=== PATIENT | male | born 1955 | race Two or more races ===

== ENCOUNTER 2019-06-14 14:15 | Inpatient (IN) | payer SELFPAY ==
[2019-06-14] VITALS (9 sets, daily range): BP systolic 145–174; BP diastolic 83–120; PULSE 64–99; RESP 14–18; TEMP 36.6–36.9; O2SAT 94–97; BMI 38.9; BMI 38.2; BMI 38.3
--- NOTE | 2019-06-14 14:20 | ED.RN ---
NO OLD EKG
--- NOTE | 2019-06-14 14:35 | EKG12_ITS ---
Test Reason : DYSRHYTHMIA Blood Pressure : / mmHG Vent. Rate : 094 BPM Atrial Rate : 100 BPM P-R Int : 000 ms QRS Dur : 088 ms QT Int : 358 ms P-R-T Axes : 000 -26 010 degrees QTc Int : 447 ms Atrial fibrillation Otherwise normal ECG Confirmed by SHEILA HAJI, REBECA ([id number]), index editor LIZ RAMOS ([id number]) on 06/17/2019 1:21:25 PM Referred By: Mana Nickerson Confirmed By:REBECA SOSA MD
[2019-06-14 14:44] LABS: Absolute Neutrophil Count 3.6 X10^3/uL (2.0-7.7); Basophil# 0.02 X10^3/uL; Basophil% 0.4 % (0-1); Eosinophil# 0.03 X10^3/uL; Eosinophils% 0.6 % (0-5); Hematocrit 43.7 % (40-54); Hemoglobin 15.4 g/dL (13.0-16.5); Lymphocyte % 24.5 % (19-41); Mean Corp Hgb Conc 35.2 g/dL (32-36); Mean Corpuscular Hgb 32.8 pg (27.0-32.0); Mean Platelet Vol. 10.3 fl (6.2-12.0); Monocyte# 0.33 X10^3/uL; Monocyte% 6.2 % (0-10); NRBC Flagged by Analyzer 0 % (0-5); Neutrophil # 3.61 X10^3/uL (2.7-7.7); Neutrophil % 67.9 % (47-70); Platelet Count 229 K/mm3 (150-450); RBC Distribution Width SD 41.1 fl (35.1-43.9); White Blood Count 5.3 K/mm3 (4.4-11.0)
--- NOTE | 2019-06-14 14:44 | RAD_ITS ---
STUDY: X-RAY CHEST REASON FOR EXAM: Male, 63 years old. Chest pain TECHNIQUE: AP COMPARISON: None. FINDINGS: EKG leads project over the chest. The lungs are clear and expanded. There is no demonstrated pleural abnormality. Normal size heart. Normal mediastinum and daiana. Normal visualized pulmonary arteries. Normal visualized aortic arch and descending thoracic aorta. Normal visualized thoracic spine. Normal visualized ribs, clavicles, and shoulders. There is no demonstrated abnormality of the visualized soft tissue structures of the upper abdomen. RAD/Chest 1 View (Portable) IMPRESSION: Nonacute portable x-ray examination of the chest. Electronically Signed: Alphonse De Anda MD ([place]) at 14:52 EDT , Service support ,
[2019-06-14 15:04] LABS: Anion Gap 9 (5-15); BUN 14 mg/dL (7-18); BUN/Creat Ratio 11.9 RATIO (10-20); Chloride 107 mmol/L (98-107); Creatinine, Serum 1.18 mg/dL (0.70-1.30); EST Glomerular Filtration Rate 66 mL/min (>60); Est Glom Filt Rate - Afr Amer 80 mL/min (>60); Estimated Creatinine Clearance 66.16 ml/min; Glucose 104 mg/dL (74-106); Potassium 3.9 mmol/L (3.5-5.1); Sodium Level 139 mmol/L (136-145); Thyroid Stim Hormone (TSH) 2.16 uIU/mL (0.358-3.74)
[2019-06-14] MEDS: dilTIAZem 25 MG/5 ML Vial 20 MG IV BOLUS (15:12)
[2019-06-14] MEDS: 0.9% Normal Saline 1,000 ML 1000 ML IV (15:12)
[2019-06-14] MEDS: Aspirin 81 MG TAB.CHEW 324 MG PO (15:13)
--- NOTE | 2019-06-14 16:27 | ED.VISSUMM ---
- ER Visit Summary Date of Service: 06/14/19 Chief Complaint: Shortness of breath History of Present Illness: The patient is a [address] Antonio Reyes. He reports that approximate 1030 this morning he was working in the barn and became very short of breath and nauseated. States he is very lightheaded. He did not pass out. He denies any chest pain. Patient reports he has a history of paroxysmal atrial fibrillation. He is on aspirin only for this. He does report he has had increased dyspnea on exertion for several months. He does not sense any palpitations at this time. Physical Examination: Vitals: Stable. Afebrile. General: Well-nourished and well-developed. Head: Normocephalic atraumatic. Neck: Supple, no lymphadenopathy. No JVD. Nontender. Cardiovascular: Tachycardic irregular rhythm. No murmurs. Respiratory: No respiratory distress. Clear to auscultation bilaterally. Abdominal: Soft, nontender, nondistended, normal bowel sounds. No guarding, rebound, or peritoneal signs. Back: Nontender. Extremities: Nontender, no edema. Skin: Normal color, no rash. Neurologic: Alert and oriented ?3. Cranial nerves II through XII are intact. Normal strength and sensation. Psych: Normal affect. Test Results: EKG is A. fib at 94 with no ischemic changes. Troponin is negative. CBC is normal. Chem-7 is normal. TSH is 2.16. Chest x-ray shows no acute disease. Emergency Department Course and Treatment: Patient was given a dose of aspirin p.o. and Cardizem IV. His rate has decreased in the 70s. However, he remains in atrial fibrillation. Treatment Plan: Patient was discussed with Dr. Nickerson. He will be admitted for further evaluation and treatment. Disposition: Admitted in improved condition. Impression: 1. Atrial fibrillation with RVR. This note was generated with [employer] dictation software. It may contain incorrect words, spelling, and punctuation that were not noted in review of the chart prior to signing ED Disposition - Plan for ED Patient: Referrals: Antonio Reyes MD [Primary Care Provider] -
--- NOTE | 2019-06-14 17:11 | PCM.HP.STD ---
Problem List (1) Atrial fibrillation with RVR Status: Acute (2) Elevated BP without diagnosis of hypertension Status: Acute (3) Suspected sleep apnea Status: Suspected (4) Hyperlipidemia Status: Chronic Qualifiers: Hyperlipidemia type: unspecified Qualified Code(s): E78.5 - Hyperlipidemia, unspecified (5) Obesity (BMI 30-39.9) Status: Chronic (6) History of prostate cancer Status: Chronic History of Present Illness Date of Admission: 06/14/19 Chief Complaint: Lightheadedness, dyspnea with exertion, near syncope sensation The patient is a 63 y/o M w/ PMHx: HLD, Obesity, Former Tobacco use, PAF noted following prostate surgery, suspected CAT who presents to the [facility] on 06/14/19 with history of several month history of dyspnea with exertion primarily with on day of ED presentation worsened dyspnea with exertion, lightheadedness, dizziness with near syncopal sensation while he was working outside in the sun felt initially secondary to possible heat stroke with no specific palpitations, chest discomfort related but given ongoing prompted ED presentation. Work-up in the ED included T 98.4, heart rate initially in the 160s with improvement with IV Cardizem, BP initially 174/120, respiratory rate 16, 94% on room air, unremarkable CBC, unremarkable BMP, pending less than 0.015, TSH 2.16, x-ray with no acute cardio primary findings, EKG with atrial fibrillation with RVR with improvement falling IV Cardizem. In the ED patient ministered aspirin 324 mill grams p.o. x1 in addition to Cardizem 20 mg IV bolus x1 as well as normal saline. Past Medical History Past Medical History (Chronic Problems): Chronic Problems Hyperlipidemia (Chronic) Obesity (BMI 30-39.9) (Chronic) History of prostate cancer (Chronic) Allergies No Known Allergies Allergy (Verified 06/14/19 14:19) Home Medications: Ambulatory Orders Medication Instructions Recorded Aspirin E.C. [Ecotrin] 162 mg PO DAILY@0800 06/14/19 Surgical History: - - Prostate surgery. Psychiatric History: No pertinent psych hx Lives: Spouse/ Significant Other, With Family Smoking Status: Former smoker - Patient notes smoking in college in his 20s for approximately 4 years on the weekends only. Tobacco Use: Non-smoker Alcohol: Occasional Drugs: None - *Family History Maternal History Items: - - Patient notes a maternal family history of hypertension, notes his mother lived into her 80s. Paternal History Items: - - Patient notes a paternal family history of CHF, heart disease, father lived into his 80s. Review of Systems Constitutional: Reports: Malaise, Weakness, Fatigue. Denies: Chills, Fever, Weight Change HEENT: Reports: - - Lightheadedness. Denies: Head Aches, Sinus Congestion, Sinus Drainage Cardiovascular: Reports: Light Headedness, - - Dizziness, near syncope sensation.. Denies: Chest Pain, Palpitations Respiratory: Reports: Shortness of breath upon exertion. Denies: Cough, Shortness of Breath, Shortness of breath at rest, Sputum production Gastrointestinal: Denies: Abdominal Pain, Nausea, Vomiting Genitourinary: Denies: Dysuria Musculoskeletal: Reports: Joint Pain. Denies: Joint Tenderness Skin: Denies: Rash, Wounds Neurological: Denies: Numbness, Tingling, Focal weakness Psychiatric: Denies: Anxiety, Depression, Homicidal Ideations, Suicidal Ideations Hematologic/ Lymphatic: Denies: Easy Bruising, Easy Bleeding VTE Information - Inpt Only VTE Present on Admission: No VTE Mechan Device Prophylaxis: SCD's VTE Pharm Prophylaxis ordered?: Yes Patient Problems: Active and Suspected Problems Atrial fibrillation with RVR (Acute) Suspected sleep apnea (Suspected) Elevated BP without diagnosis of hypertension (Acute) Subjective: Seated upright in the ED bed, no acute distress, denies any current chest discomfort or palpitations. No dyspnea currently. Objective: Physical Examination: General: awake, alert, oriented x 3 and cooperative, seated upright in bed the ED bed, no acute distress. Skin: normal color, turgor, no icterus, cyanosis. HEENT: AT/NC, EOMI, PERRLA, MMM, no carotid bruits or JVD noted; however, habitus makes examination difficult. Lungs: CTA bilaterally, moderate effort, mild decrease BL bases, no rales, ronchi or wheezing. Heart: Irregular irregular; no gallop, rub audible. Abdomen: soft, obese, NTTP, ND, normal BS, no HSM. Extremities: no cyanosis, clubbing, or edema. Neurological: patient awake, alert, oriented x 3; cognitive function intact; pupils equally reactive to light and accomodation; cranial nerves II-XII grossly normal, moving all 4 extremities, no focal deficits, strength moderately global decrease secondary to acute presentation. Psychiatric: affect appears mildly fatigued, no acute evidence of depressive or anxiety feelings. - Physical Exam Vital Signs Temp Pulse Resp BP Pulse Ox 98.4 F 83 16 166/98 H 95 06/14/19 14:16 06/14/19 15:15 06/14/19 15:15 06/14/19 15:15 06/14/19 15:15 Oxygen Delivery Method Room Air Weight: 271 lb 9.752 oz Body Mass Index (BMI) 38.9 Laboratory Tests Past 24 Hrs 06/14/19 06/14/19 14:15 14:15 WBC 5.3 RBC 4.70 Hgb 15.4 Hct 43.7 MCV 93.0 MCH 32.8 H MCHC 35.2 RDW Std Deviation 41.1 RDW Coeff of [place]in 12.0 Plt Count 229 MPV 10.3 Immature Gran % (Auto) 0.400 Neut % (Auto) 67.9 Lymph % (Auto) 24.5 [place] % (Auto) 6.2 Eos % (Auto) 0.6 Baso % (Auto) 0.4 Absolute Neuts (auto) 3.6 Absolute Lymphs (auto) 1.30 Nucleated RBC % 0 Sodium 139 Potassium 3.9 Chloride 107 Carbon Dioxide 23.0 Anion Gap 9 BUN 14 Creatinine 1.18 Estim Creat Clear Calc 66.16 Est GFR (MDRD) Af Amer 80 Est GFR (MDRD) Non-Af 66 BUN/Creatinine Ratio 11.9 Glucose 104 Calcium 9.0 Troponin I < 0.015 TSH 2.16 Assessment/Plan All Active Problems Atrial fibrillation with RVR (Acute) Elevated BP without diagnosis of hypertension (Acute) The patient is a 63 y/o M w/ PMHx: HLD, Obesity, Former Tobacco use, PAF noted following prostate surgery, suspected CAT who presents to the [facility] on 06/14/19 with history of several month history of dyspnea with exertion primarily with on day of ED presentation worsened dyspnea with exertion, lightheadedness, dizziness with near syncopal sensation while he was working outside in the sun felt initially secondary to possible heat stroke with no specific palpitations, chest discomfort related but given ongoing prompted ED presentation. 1. Lightheadedness, dyspnea, near syncope suspected secondary to acute Paroxsymal atrial fibrillation with RVR: EKG in ED w/ atrial fibrillation w/ RVR. Patient administered IV Cardizem 20 mill grams x1 in ED. Will admit to PCU, maintain on telemetry, obtain cardiac enzyme serial set, obtain magnesium level, obtain ECHO, TSH level normal. CHADs scoring given current presentation with elevated blood pressure in addition appropriate for anticoagulation thus will start at this time w/ lovenox pending cardiology assessment and further evaluation. Currently improved rate with IV Cardizem, will continue to monitor and restart IV option if needed, and interim will placed on oral Cardizem. Cardiology consulted, pending. Per discussion suspect sleep apnea which could be contributing to this presentation, trending pulse ox. Patient also admits to at least 3 cups of coffee daily thus may need to moderate. 2. Elevated BP without hypertensive history: Notable elevated blood pressure upon ED presentation, suspect likely underlying hypertension given this presentation, as noted placing on oral Cardizem given notable response, monitor blood pressure and alter regimen as needed, PRN IV hydralazine. 3. Hyperlipidemia: Not on regimen, FLP in a.m. 4. Obesity: Weight loss and lifestyle changes encouraged, nutrition consulted. 5. Former tobacco use: Encouraged continued tobacco cessation, very remote history. 6. Suspected CAT: Patient admits to nighttime snoring, holding breath spells, will place on trending pulse ox. 7. History of prostate cancer: Remission. Status post surgical intervention. 8. DVT prophylaxis: SCDs, therapeutic Lovenox as noted. Code Visit Inpatient E&M: 36032 Init Hosp L3
--- NOTE | 2019-06-14 17:52 | ECHOCS_ITS ---
Reason For Study: AFIB/ FLUTTER Procedure This was a 2D Doppler, Color Flow transthoracic echocardiogram. Exam performed portable in patient room. Left Ventricle Normal LV size. Left ventricular systolic function is normal. The estimated ejection fraction is 60 %. Unable to assess diastolic dysfunction due to arrhythmia. No regional wall motion abnormalities noted. Right Ventricle Normal RV size. Normal systolic function. Atria Normal left atrium. Normal right atrium. Mitral Valve Normal mitral valve. Mild (1+) mitral valve insufficiency. Tricuspid Valve Normal tricuspid valve. Mild tricuspid valve insufficiency. Pulmonary artery systolic pressure is 30 mmHg. Aortic Valve Trisinus/trileaflet aortic valve. Mild (1+) aortic valve insufficiency. Pulmonic Valve Normal pulmonic valve. Great Vessels Normal aortic root. The pulmonary artery is normal size. Normal inferior vena cava. Pericardium/Pleural No pericardial effusion. Medication Diluted definity 4ml given slow IV push to enhance endocardial definition. MMode/2D Measurements & Calculations LVIDd: 5.0 cm IVSd: 1.2 cm Ao root diam: 4.1 cm LVIDs: 3.3 cm LVPWd: 1.3 cm RVDd: 2.8 cm FS: 34.8 % LAV(MOD-bp): 80.7 ml LA A4 area: 21.0 cm2 LA dimension(2D): 5.2 cm LAV(MOD-bp) Indexed: 34.0 ml/m2 LAV(MOD-sp2): 93.2 ml LAV(MOD-sp4): 62.3 ml RA A4 area: 20.6 cm2 Doppler Measurements & Calculations Ao V2 max: 134.1 cm/sec AI max domitila: 432.7 cm/sec LV V1 max: 107.7 cm/sec Ao max P.3 mmHg AI max P.1 mmHg LV V1 max P.7 mmHg AI dec slope: 226.8 cm/sec2 AI P1/2t: 558.9 msec PA V2 max: 133.3 cm/sec PI end-d domitila: 99.1 cm/sec TR max domitila: 249.1 cm/sec TR max P.1 mmHg Interpretation Summary Normal LV size. Left ventricular systolic function is normal. The estimated ejection fraction is 60 %. Unable to assess diastolic dysfunction due to arrhythmia. Mild tricuspid valve insufficiency. Contrast injection was performed. Ordering Physician: Mana Nickerson Referring Physician: SOLEDAD TAYLOR Performed By: Katie Soler, KRISSYCS, RVT
[2019-06-14 18:07] LABS: Magnesium 2.1 mg/dL (1.6-2.6)
--- NOTE | 2019-06-14 20:07 | NURSING ---
CALLED IN, THIS RN UPDATED ON STATUS
[2019-06-14] MEDS: 0.9% NaCl Peripheral Flush Adult/Peds IV (20:13)
[2019-06-14] MEDS: Ondansetron 4 MG/2 ML Vial IV (20:14)
[2019-06-14] MEDS: dilTIAZem CD 120 MG Capsule PO (21:31)
[2019-06-14] MEDS: Enoxaparin 120 MG/0.8 ML Syringe SC (21:31)
[2019-06-15] VITALS (12 sets, daily range): BP systolic 117–149; BP diastolic 72–89; PULSE 45–79; RESP 14–18; TEMP 36.6–36.9; O2SAT 93–98
--- NOTE | 2019-06-15 05:55 | EKG12_ITS ---
Test Reason : AM EKG Blood Pressure : / mmHG Vent. Rate : 062 BPM Atrial Rate : 080 BPM P-R Int : 000 ms QRS Dur : 086 ms QT Int : 424 ms P-R-T Axes : 000 -17 007 degrees QTc Int : 430 ms Atrial fibrillation Inferior infarct , age undetermined Abnormal ECG No previous ECGs available Confirmed by FACUNDO GARAY ([id number]), creative recruiter RICH FRANK ([id number] on 06/24/2019 8:19:27 AM Referred By: Mana Nickerson Confirmed By:FACUNDO GARAY
[2019-06-15 06:45] LABS: Absolute Lymphocyte Count 1.89 X10^3/uL (0.83-4.51); Basophil# 0.02 X10^3/uL; Basophil% 0.4 % (0-1); Eosinophil# 0.11 X10^3/uL; Hemoglobin 14.3 g/dL (13.0-16.5); Lymphocyte # 1.89 X10^3/ul (4.0); Lymphocyte % 34.5 % (19-41); Mean Corp Hgb Conc 34.9 g/dL (32-36); Mean Corpuscular Hgb 32.7 pg (27.0-32.0); Mean Corpuscular Volume 93.8 fL (80-94); Mean Platelet Vol. 9.8 fl (6.2-12.0); Monocyte# 0.48 X10^3/uL; Monocyte% 8.8 % (0-10); NRBC Flagged by Analyzer 0 % (0-5); Neutrophil # 2.96 X10^3/uL (2.7-7.7); Neutrophil % 53.9 % (47-70); Platelet Count 229 K/mm3 (150-450); RBC Distribution Width CV 12.2 % (11.6-14.6); RBC Distribution Width SD 42.5 fl (35.1-43.9); Red Blood Count 4.37 M/mm3 (4.6-6.2); White Blood Count 5.5 K/mm3 (4.4-11.0)
[2019-06-15 07:05] LABS: Anion Gap 8 (5-15); BUN 13 mg/dL (7-18); BUN/Creat Ratio 12.7 RATIO (10-20); Calcium,Total 8.4 mg/dL (8.5-10.1); Chloride 109 mmol/L (98-107); Cholesterol 212 mg/dL (200); Creatinine, Serum 1.02 mg/dL (0.70-1.30); EST Glomerular Filtration Rate 78 mL/min (>60); Est Glom Filt Rate - Afr Amer 95 mL/min (>60); Estimated Creatinine Clearance 76.54 ml/min; Glucose 106 mg/dL (74-106); High Density Lipoprotein 30 mg/dL; Potassium 3.8 mmol/L (3.5-5.1); Sodium Level 141 mmol/L (136-145); Triglycerides 323 mg/dL; Very Low Density Lipoprotein 65 mg/dL (5-40)
--- NOTE | 2019-06-15 09:02 | PCM.CONS.C ---
Problem List (1) Atrial fibrillation with RVR Status: Acute Reason for Consult Date of Consultation: 06/15/19 Reason for Consultation: Atrial fibrillation with rapid ventricular response History of Present Illness: The patient is a 63 year old M with past medical history of paroxysmal atrial fibrillation, who presented yesterday with complaints of dizziness and lightheadedness. The patient states that he was walking out of his barn yesterday and felt significantly dizzy and lightheaded therefore called an ambulance. Upon presentation to the emergency room, he was found to be in atrial fibrillation with rapid ventricular response, he was given Cardizem bolus started on PO Cardizem and Lovenox. This morning, ventricular response rate is well controlled. The patient is totally asymptomatic. The patient stated that he does have a history of atrial fibrillation. He did have a prostate surgery several years ago, and at that time, he was diagnosed with atrial fibrillation. He used to follow with a eligibility and occupancy interviewer from [facility]; currently, he does not have an established eligibility and occupancy interviewer. He denies history of hypertension, even though he states that his blood pressure has been creeping up slowly; at regular job-related physicals, is been consistently less than 140 mmHg, according to the patient. Denies history of diabetes, CVA, peripheral vascular disease, coronary artery disease, CHF. Review of systems is significant for chronic shortness of breath times several months, snoring, otherwise unremarkable. Serial cardiac enzymes are negative, TSH and potassium levels are within normal limits. [] Past Medical History Allergies/Adverse Reactions: Allergies No Known Allergies Allergy (Verified 06/14/19 14:19) Home Medications: Ambulatory Orders Medication Instructions Recorded Aspirin E.C. [Ecotrin] 162 mg PO DAILY@0800 06/14/19 Past Medical History (Chronic Problems): Chronic Problems Hyperlipidemia (Chronic) Obesity (BMI 30-39.9) (Chronic) History of prostate cancer (Chronic) Surgical History: - - Prostate surgery. Psychiatric History: No pertinent psych hx - *Family History Maternal History Items: - - Patient notes a maternal family history of hypertension, notes his mother lived into her 80s. Paternal History Items: - - Patient notes a paternal family history of CHF, heart disease, father lived into his 80s. Lives: Spouse/ Significant Other, With Family Smoking Status: Never smoker Tobacco Use: Non-smoker Alcohol: Occasional Drugs: None Review of Systems - Review of Systems General: Denies: Fever, Night Sweats, Fatigue Cardiovascular: Reports: Shortness of Breath Respiratory: Denies: Cough, Sputum Production, Hemoptysis Gastrointestinal: Denies: Hematemesis, Hematochezia, Melena Genitourinary: Denies: Dysuria, Hematuria Skin: Denies: Rash Objective: Vital Signs Temp Pulse Resp BP Pulse Ox 97.9 F 49 L 14 117/72 98 06/15/19 03:28 06/15/19 07:18 06/15/19 03:28 06/15/19 03:28 06/15/19 03:28 Oxygen Delivery Method Room Air Weight: 121.109 kg Body Mass Index (BMI) 38.2 Intake and Output for Last 24 Hours 06/13/19 06/14/19 06/15/19 23:59 23:59 23:59 Intake Total 240 / 240 240 / 240 Balance 240 / 240 240 / 240 General: Awake, Alert, Oriented x 3 HEENT: PERRL, EOMI, Sclera Non Icteric Neck: Supple, Good ROM, No Lymph Node Enlargement Lungs: Clear to auscultation Cardiovascular: Irregular Rhythm, No Murmurs, No Rubs, No Gallops Abdomen: Bowel Sounds Present, Soft, Non Tender, No HSM, No Organomegaly Extremities: No Cyanosis, No Clubbing, No edema Neurological: No Focal Motor or Sensory Deficit 06/14/19 14:15: WBC 5.3, RBC 4.70, Hgb 15.4, Hct 43.7, MCV 93.0, MCH 32.8 H, MCHC 35.2, Plt Count 229, MPV 10.3, Immature Gran % (Auto) 0.400, Neut % (Auto) 67.9, Lymph % (Auto) 24.5, [place] % (Auto) 6.2, Eos % (Auto) 0.6, Baso % (Auto) 0.4, Absolute Neuts (auto) 3.6, Nucleated RBC % 0 06/14/19 14:15: Sodium 139, Potassium 3.9, Chloride 107, Carbon Dioxide 23.0, Anion Gap 9, BUN 14, Creatinine 1.18, Est GFR (MDRD) Af Amer 80, Est GFR (MDRD) Non-Af 66, BUN/Creatinine Ratio 11.9, Glucose 104, Calcium 9.0, Troponin I < 0.015 08/17/19 14:15: Magnesium 2.1 06/14/19 18:58: Troponin I < 0.015 06/14/19 22:03: Troponin I < 0.015 06/15/19 06:23: WBC 5.5, RBC 4.37 L, Hgb 14.3, Hct 41.0, MCV 93.8, MCH 32.7 H, MCHC 34.9, Plt Count 229, MPV 9.8, Immature Gran % (Auto) 0.400, Neut % (Auto) 53.9, Lymph % (Auto) 34.5, [place] % (Auto) 8.8, Eos % (Auto) 2.0, Baso % (Auto) 0.4, Absolute Neuts (auto) 3.0, Nucleated RBC % 0 06/15/19 06:23: Sodium 141, Potassium 3.8, Chloride 109 H, Carbon Dioxide 24.0, Anion Gap 8, BUN 13, Creatinine 1.02, Est GFR (MDRD) Af Amer 95, Est GFR (MDRD) Non-Af 78, BUN/Creatinine Ratio 12.7, Glucose 106, Calcium 8.4 L, Triglycerides 323 H, Cholesterol 212 H, LDL Cholesterol 117, VLDL Cholesterol 65 H, HDL Cholesterol 30 L Rhythm: EKG: Atrial fibrillation with rapid ventricular response ECHO: Pending Stress Test: Cardiac Cath: PCI: CT Surgery: Holter monitor: EPS: PPM: CXR: Chest CT Scan: Assessment/Plan 1. Atrial fibrillation of unknown duration. He does have a history of that, diagnosed several years ago. The patient is in atrial fibrillation, rate is quite well controlled. Echocardiogram is currently pending. Not sure about length of the current episode, ? chronic atrial fibrillation. If no significant impairment in left ventricular ejection fraction, then chads 2 vascular risk score is probably 0-1; the patient has never been formally diagnosed with hypertension, even though his blood pressure was found to be elevated at initial presentation. I feel that we can hold off anticoagulation. 2. Most likely, the patient does have a history of undiagnosed obstructive sleep apnea, therefore recommendations are for an outpatient sleep study. Code Visit Inpatient E&M: 69272 Init Hosp L2
--- NOTE | 2019-06-15 09:56 | PCM.PROGNOTE ---
<Angela Roca - Last Filed: 06/15/19 10:08> Patient Problems: Active and Suspected Problems Atrial fibrillation with RVR (Acute) Suspected sleep apnea (Suspected) Elevated BP without diagnosis of hypertension (Acute) Subjective: Patient seen and examined. Complains of abdominal bloating. Denies further lightheadedness, dyspnea. Denies chest pain. - Physical Exam General: Alert, Oriented x3, Cooperative HEENT: Atraumatic, PERRLA, EOMI, Normocephalic Neck: Supple, No JVD, Negative Carotid Bruits Lungs: Clear to auscultation, Normal air movement Cardiovascular: - - Atrial fibrillation, rate controlled. Abdomen: Bowel Sounds Present, Soft, Non Tender, Non-Distended, Obese Extremities: No clubbing, No cyanosis, No edema, Capillary Refill Less than 3 Seconds Skin: No rashes, No breakdown Musculoskeletal: No Tenderness to Palpation of Joints or Extremities Neurological: Cranial nerves II-XII grossly intact, Neuro grossly intact Psych/Mental Status: Normal Affect, Appropriate Vital Signs Temp Pulse Resp BP Pulse Ox 97.9 F 49 L 14 117/72 98 06/15/19 03:28 06/15/19 07:18 06/15/19 03:28 06/15/19 03:28 06/15/19 03:28 Oxygen Delivery Method Room Air Weight: 267 lb Body Mass Index (BMI) 38.2 Intake and Output for Last 24 Hours 06/13/19 06/14/19 06/15/19 23:59 23:59 23:59 Intake Total 240 / 240 240 / 240 Balance 240 / 240 240 / 240 Laboratory Tests Past 24 Hrs 06/14/19 06/14/19 06/14/19 14:15 14:15 14:15 WBC 5.3 RBC 4.70 Hgb 15.4 Hct 43.7 MCV 93.0 MCH 32.8 H MCHC 35.2 RDW Std Deviation 41.1 RDW Coeff of Augustin 12.0 Plt Count 229 MPV 10.3 Immature Gran % (Auto) 0.400 Neut % (Auto) 67.9 Lymph % (Auto) 24.5 [place] % (Auto) 6.2 Eos % (Auto) 0.6 Baso % (Auto) 0.4 Absolute Neuts (auto) 3.6 Absolute Lymphs (auto) 1.30 Nucleated RBC % 0 Sodium 139 Potassium 3.9 Chloride 107 Carbon Dioxide 23.0 Anion Gap 9 BUN 14 Creatinine 1.18 Estim Creat Clear Calc 66.16 Est GFR (MDRD) Af Amer 80 Est GFR (MDRD) Non-Af 66 BUN/Creatinine Ratio 11.9 Glucose 104 Calcium 9.0 Magnesium 2.1 Troponin I < 0.015 Triglycerides Cholesterol LDL Cholesterol VLDL Cholesterol HDL Cholesterol TSH 2.16 06/14/19 06/14/19 06/15/19 18:58 22:03 06:23 WBC 5.5 RBC 4.37 L Hgb 14.3 Hct 41.0 MCV 93.8 MCH 32.7 H MCHC 34.9 RDW Std Deviation 42.5 RDW Coeff of Augustin 12.2 Plt Count 229 MPV 9.8 Immature Gran % (Auto) 0.400 Neut % (Auto) 53.9 Lymph % (Auto) 34.5 [place] % (Auto) 8.8 Eos % (Auto) 2.0 Baso % (Auto) 0.4 Absolute Neuts (auto) 3.0 Absolute Lymphs (auto) 1.89 Nucleated RBC % 0 Sodium Potassium Chloride Carbon Dioxide Anion Gap BUN Creatinine Estim Creat Clear Calc Est GFR (MDRD) Af Amer Est GFR (MDRD) Non-Af BUN/Creatinine Ratio Glucose Calcium Magnesium Troponin I < 0.015 < 0.015 Triglycerides Cholesterol LDL Cholesterol VLDL Cholesterol HDL Cholesterol TSH 06/15/19 06:23 WBC RBC Hgb Hct MCV MCH MCHC RDW Std Deviation RDW Coeff of Augustin Plt Count MPV Immature Gran % (Auto) Neut % (Auto) Lymph % (Auto) [place] % (Auto) Eos % (Auto) Baso % (Auto) Absolute Neuts (auto) Absolute Lymphs (auto) Nucleated RBC % Sodium 141 Potassium 3.8 Chloride 109 H Carbon Dioxide 24.0 Anion Gap 8 BUN 13 Creatinine 1.02 Estim Creat Clear Calc 76.54 Est GFR (MDRD) Af Amer 95 Est GFR (MDRD) Non-Af 78 BUN/Creatinine Ratio 12.7 Glucose 106 Calcium 8.4 L Magnesium Troponin I Triglycerides 323 H Cholesterol 212 H LDL Cholesterol 117 VLDL Cholesterol 65 H HDL Cholesterol 30 L TSH Medical Necessity - Tobacco Use Smoking Status: Never smoker Tobacco Use: Non-smoker Assessment/Plan All Active Problems Atrial fibrillation with RVR (Acute) Elevated BP without diagnosis of hypertension (Acute) 1. Atrial fibrillation with RVR, patient reports remote history of PAF-patient reports he previously followed with [facility] cardiology due to atrial fibrillation which was noted on preoperative EKG for prostate surgery. He notes on further follow-up there was no further atrial fibrillation to his knowledge. Patient received IV Cardizem in ER. Remains in atrial fibrillation, rate controlled. Continue oral Cardizem CD 120 mg twice daily. Cardiology consulted. At this point cardiology does not feel patient needs oral anticoagulation given chads 2 vascular score 0-1. Plan for echocardiogram in a.m. 2. Elevated blood pressure without history of hypertension-blood pressure improved, continue PRN hydralazine. Plan for transition to oral regimen pending further blood pressure monitoring. 3. Hyperlipidemia-not on statin regimen. Will initiate atorvastatin 40 mg p.o. nightly. 4. Suspected CAT-trending pulse ox ordered. Recommend outpatient PSG. 5. Obesity-encouraged diet lifestyle modifications. 6. Former tobacco use-remote history, denies recent use. 7. History of prostate cancer-in remission. DVT prophylaxis-Lovenox This patient was seen by BECKY Vasquez under the supervision of Dr. Pina. <Mohsen Pina - Last Filed: 06/15/19 11:12> - Physical Exam Vital Signs Temp Pulse Resp BP Pulse Ox 98.1 F 62 18 133/85 H 94 06/15/19 10:00 06/15/19 10:00 06/15/19 10:00 06/15/19 10:00 06/15/19 10:00 Oxygen Delivery Method Room Air Weight: 121.109 kg Body Mass Index (BMI) 38.2 Intake and Output for Last 24 Hours 06/13/19 06/14/19 06/15/19 23:59 23:59 23:59 Intake Total 240 / 240 240 / 240 Balance 240 / 240 240 / 240 Laboratory Tests Past 24 Hrs 06/14/19 06/14/19 06/14/19 14:15 14:15 14:15 WBC 5.3 RBC 4.70 Hgb 15.4 Hct 43.7 MCV 93.0 MCH 32.8 H MCHC 35.2 RDW Std Deviation 41.1 RDW Coeff of Augustin 12.0 Plt Count 229 MPV 10.3 Immature Gran % (Auto) 0.400 Neut % (Auto) 67.9 Lymph % (Auto) 24.5 [place] % (Auto) 6.2 Eos % (Auto) 0.6 Baso % (Auto) 0.4 Absolute Neuts (auto) 3.6 Absolute Lymphs (auto) 1.30 Nucleated RBC % 0 Sodium 139 Potassium 3.9 Chloride 107 Carbon Dioxide 23.0 Anion Gap 9 BUN 14 Creatinine 1.18 Estim Creat Clear Calc 66.16 Est GFR (MDRD) Af Amer 80 Est GFR (MDRD) Non-Af 66 BUN/Creatinine Ratio 11.9 Glucose 104 Calcium 9.0 Magnesium 2.1 Troponin I < 0.015 Triglycerides Cholesterol LDL Cholesterol VLDL Cholesterol HDL Cholesterol TSH 2.16 06/14/19 06/14/19 06/15/19 18:58 22:03 06:23 WBC 5.5 RBC 4.37 L Hgb 14.3 Hct 41.0 MCV 93.8 MCH 32.7 H MCHC 34.9 RDW Std Deviation 42.5 RDW Coeff of Augustin 12.2 Plt Count 229 MPV 9.8 Immature Gran % (Auto) 0.400 Neut % (Auto) 53.9 Lymph % (Auto) 34.5 [place] % (Auto) 8.8 Eos % (Auto) 2.0 Baso % (Auto) 0.4 Absolute Neuts (auto) 3.0 Absolute Lymphs (auto) 1.89 Nucleated RBC % 0 Sodium Potassium Chloride Carbon Dioxide Anion Gap BUN Creatinine Estim Creat Clear Calc Est GFR (MDRD) Af Amer Est GFR (MDRD) Non-Af BUN/Creatinine Ratio Glucose Calcium Magnesium Troponin I < 0.015 < 0.015 Triglycerides Cholesterol LDL Cholesterol VLDL Cholesterol HDL Cholesterol TSH 06/15/19 06:23 WBC RBC Hgb Hct MCV MCH MCHC RDW Std Deviation RDW Coeff of Augustin Plt Count MPV Immature Gran % (Auto) Neut % (Auto) Lymph % (Auto) [place] % (Auto) Eos % (Auto) Baso % (Auto) Absolute Neuts (auto) Absolute Lymphs (auto) Nucleated RBC % Sodium 141 Potassium 3.8 Chloride 109 H Carbon Dioxide 24.0 Anion Gap 8 BUN 13 Creatinine 1.02 Estim Creat Clear Calc 76.54 Est GFR (MDRD) Af Amer 95 Est GFR (MDRD) Non-Af 78 BUN/Creatinine Ratio 12.7 Glucose 106 Calcium 8.4 L Magnesium Troponin I Triglycerides 323 H Cholesterol 212 H LDL Cholesterol 117 VLDL Cholesterol 65 H HDL Cholesterol 30 L TSH Assessment/Plan This patient was seen in conjunction with BECKY Vasquez . I have independently interviewed and examined the patient and reviewed pertinent historical, laboratory, and other data. Please refer to BECKY Vasquez note for details of this patient's presentation, findings, and recommendations. I have reviewed BECKY Vasquez note and concur with documented findings. In brief, patient is a 63-year-old male admitted with shortness of breath and palpitations. Patient was found to have markedly elevated blood pressure. She was also found to be in A. fib with RVR started on Cardizem and admitted to a monitored bed Physical Examination: GENERAL: cooperative HEENT: Atraumatic; EYES; Anicteric, NECK; supple, normal thyroid, RESPIRATORY: Diminished to auscultation bilaterally, CARDIOVASCULAR: Irregular S1 S2, GI: soft, non-tender, normoactive bowel sounds, : No Renal angle tenderness; EXTREMITIES: No edema, no clubbing, MUSCULOSKELETAL: No Joint Tenderness; NEURO: Awake; no lateralizing signs. SKIN: No Rash PSYCH; Normal affect Assessment: 1. A. fib with RVR 2. Accelerated hypertension 3. Dyslipidemia 4. Obstructive sleep apnea 5. Obesity with BMI of 38.3 6. Prostate cancer currently in remission 7. DVT prophylaxis on Lovenox Recommendations: 1. I have discussed the results of my overview and impressions with the patient 2. Options for management were reviewed Code Visit Inpatient E&M: 90102 Subs Hosp L3
[2019-06-15] MEDS: Enoxaparin 120 MG/0.8 ML Syringe SC ×2 (10:36→22:02)
[2019-06-15] MEDS: dilTIAZem CD 120 MG Capsule PO ×2 (10:36→22:02)
[2019-06-15] MEDS: Ondansetron 4 MG/2 ML Vial IV (11:56)
[2019-06-15] MEDS: 0.9% NaCl Peripheral Flush Adult/Peds IV (11:57)
[2019-06-15] MEDS: Acetaminophen 325 MG Tablet 650 MG PO ×2 (14:08→22:04)
[2019-06-15] MEDS: Atorvastatin Calcium 40 MG Tablet PO (22:02)
[2019-06-16] VITALS (8 sets, daily range): BP systolic 127–141; BP diastolic 70–81; PULSE 37–69; RESP 14–16; TEMP 36.6–36.8; O2SAT 94–100
[2019-06-16] MEDS: dilTIAZem CD 120 MG Capsule PO (10:34)
--- NOTE | 2019-06-16 10:59 | CASEMGMT ---
ANAYA REID assessment: Face to Face with patient for initial transition planning/care coordination assessment. ANAYA REID introduced self and role at [facility], pt voices understanding and consents to assessment at this time. Pt is sitting up in bed in no distress at this time. Pt is A/Ox4 at this time and answers all questions appropriately at this time. Care providers, pharmacy, and demographics verified at this time. PCP: Antonio Reyes Specialists: Pt states currently has no specialists. Preferred Pharmacy: [facility] Insurance: Self pay, pt states was already seen by Janette from [facility] in regards to financial assistance. Prescription Benefit: Self pay, pt states was not previously on medications. Living Will/HPOA: Pt states does not have LW/HPOA and declines info at this time. LNOK: Rosanna Webster, Living Arrangements: Pt states lives with on main level of 2 story home and states no concerns at home at this time. Pt states is independent with ADL's. Transportation: Pt states drives self and states no transportation concerns at this time. DME/HHC: Pt states has a cane but does not use and states no need for any further DME at this time. Pt states no hx of SNF or HHC in the past. Pt states that he believes and has been told that he has sleep apnea but it has never been tested but Dr. Reyes is going to refer him for f/u for this. Pt states no concerns with going home at time of discharge. 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 Pt states does not smoke or drink ETOH. Pt states no further concerns/needs at this time. CM to follow for any further discharge planning/needs and to see if pt goes home on any scripts. Advised pt to ask for CM if any further questions/concerns/needs arise, voices understanding. Pt Goal: Home Plan[place]NA[place]
--- NOTE | 2019-06-16 14:12 | PCM.DC ---
- Discharge Diagnoses Current Active Problems: Current Active and Chronic Problems Atrial fibrillation with RVR (Acute) Hyperlipidemia (Chronic) Obesity (BMI 30-39.9) (Chronic) History of prostate cancer (Chronic) Elevated BP without diagnosis of hypertension (Acute) You will use the following diet at home:: Calorie/Carbohydrate Controlled (specify 1200, 1400, etc), Cardiac Discharge Activity: Return to Normal Activity Call your doctor if you observe: Shortness of breath, Dizziness, Fainting spells, Chest pain Additional Instructions: Recommend sleep study as outpatient which can be arranged by primary care provider. Allergies/Adverse Reactions: Allergies No Known Allergies Allergy (Verified 06/14/19 14:19) Medications to take at Discharge Aspirin E.C. [Ecotrin] 162 mg PO DAILY@0800 06/14/19 Atorvastatin Calcium [Lipitor] 40 mg PO QHS #60 tab 06/16/19 Diltiazem CD [Cardizem CD] 120 mg PO BID #120 cap 06/16/19 The following prescriptions were given: Diltiazem CD [Cardizem CD] 120 mg PO BID #120 cap Transmission Status: Pending to [facility] Atorvastatin Calcium [Lipitor] 40 mg PO QHS #60 tab Transmission Status: Pending to [facility] Primary Care Physician: Antonio Reyes MD [Primary Care Provider] - Please follow up with your Primary Care Physician in: 1 Week Test Results: Test results from this visit will be discussed in further detail at your follow-up appointment, if applicable. Please Follow Up With: [facility] When: 1 Week, call to establish Proposed Discharge Date: 06/16/19
--- NOTE | 2019-06-16 14:22 | DS.PCM_ITS ---
Discharge Date and Diagnosis Date of Admission: 06/14/19 Date of Discharge: 06/16/19 - Primary Discharge Diagnosis Active and Suspected Problems 1. Atrial fibrillation with RVR, patient reports remote history of PAF 2. Elevated blood pressure without history of hypertension 3. Hyperlipidemia 4. Suspected CAT 5. Obesity 6. Former tobacco use 7. History of prostate cancer - Secondary Discharge Diagnosis Chronic Problems Hyperlipidemia (Chronic) Obesity (BMI 30-39.9) (Chronic) History of prostate cancer (Chronic) Hospital Course and Treatment Imaging Results: Diagnostic Data Chest X-Ray 06/14/19 14:44 IMPRESSION: Nonacute portable x-ray examination of the chest. Electronically Signed: Alphonse De Anda MD (Brooks) at 14:52 EDT , Service support , Dr. Seals- Cardiology Operations: None Procedures: 2-D Echocardiogram Summary of Care Provided: The patient is a 63 year old M admitted 06/14/2019 due to lightheadedness, near syncope. 1. Atrial fibrillation with RVR, patient reports remote history of PAF-patient reports he previously followed with [facility] cardiology due to atrial fibrillation which was noted on preoperative EKG for prostate surgery. He notes on further follow-up there was no further atrial fibrillation to his knowledge. Patient received IV Cardizem in ER. Remains in atrial fibrillation, rate controlled. Continue oral Cardizem CD 120 mg twice daily. Cardiology consulted. At this point cardiology does not feel patient needs oral anticoagulation given chads 2 vascular score 0-1. Continue home aspirin regimen. Echocardiogram demonstrates an EF of 60%, mild tricuspid valve insufficiency. Follow-up with primary care physician in 1 week. Follow-up with [facility] in 1 week, recommend calling to establish. 2. Elevated blood pressure without history of hypertension-blood pressure improved with Cardizem. No further oral medications added. 3. Hyperlipidemia-not on statin regimen. Patient was started on atorvastatin 40 mg p.o. nightly. Recommend repeat lipid panel in 6 weeks. 4. Suspected CAT-recommend outpatient PSG. This can be arranged by PCP. 5. Obesity-encouraged diet lifestyle modifications. 6. Former tobacco use-remote history, denies recent use. 7. History of prostate cancer-in remission. General: Alert, Oriented x3, Cooperative HEENT: Atraumatic, PERRLA, EOMI, Normocephalic Neck: Supple, No JVD, Negative Carotid Bruits Lungs: Clear to auscultation, Normal air movement Cardiovascular: - - Atrial fibrillation, rate controlled. Abdomen: Bowel Sounds Present, Soft, Non Tender, Non-Distended, Obese Extremities: No clubbing, No cyanosis, No edema, Capillary Refill Less than 3 Seconds Skin: No rashes, No breakdown Musculoskeletal: No Tenderness to Palpation of Joints or Extremities Neurological: Cranial nerves II-XII grossly intact, Neuro grossly intact Psych/Mental Status: Normal Affect, Appropriate Patient seen and examined prior to discharge. Physical assessment as noted above. Patient is stable for discharge with follow up recommendations as noted above. This patient was seen by BECKY Vasquez under the supervision of Dr. Se becerril. - Physical Exam Vital Signs Temp Pulse Resp BP Pulse Ox 98.3 F 65 16 127/78 H 94 06/16/19 14:02 06/16/19 14:02 06/16/19 14:02 06/16/19 14:02 06/16/19 14:02 Oxygen Delivery Method Room Air Weight: 267 lb Body Mass Index (BMI) 38.2 Intake and Output for Last 24 Hours 06/14/19 06/15/19 06/16/19 23:59 23:59 23:59 Intake Total 240 / 240 1440 / 1440 840 / 840 Balance 240 / 240 1440 / 1440 840 / 840 Discharge Diet: Low fat/ Low Cholesterol, 1800 Calorie Control Diet Discharge Activity: Return to Normal Activity Call your doctor if you observe: Shortness of breath, Dizziness, Fainting spells, Chest pain Home Medications: Medications to take at Discharge Aspirin E.C. [Ecotrin] 162 mg PO DAILY@0800 06/14/19 Atorvastatin Calcium [Lipitor] 40 mg PO QHS #60 tab 06/16/19 Diltiazem CD [Cardizem CD] 120 mg PO BID #120 cap 06/16/19 Following Prescrptions Were Given to Patient: Diltiazem CD [Cardizem CD] 120 mg PO BID #120 cap Transmission Status: Pending to [facility]30 Atorvastatin Calcium [Lipitor] 40 mg PO QHS #60 tab Transmission Status: Pending to [facility]30 Primary Care Physician: Antonio Reyes MD [Primary Care Provider] - Please follow up with your Primary Care Physician in: 1 Week Please Follow Up With: [facility] When: 1 Week, call to establish Disposition: Home Minutes spent on discharge:: 35 Patient Condition:: Stable Medical Necessity - Tobacco Use Smoking Status: Never smoker Tobacco Use: Non-smoker Meaningful Use Info Meaningful Use Diagnoses (Choose all that apply): None applicable
--- NOTE | 2019-06-16 15:46 | CASEMGMT ---
Due to patient not having insurance SW reviewed his discharge medications. SW noted they will likely be under $20 a piece. Patient said he can manage this and thanked TIMO for checking. Yuli REED MSW
== END 2019-06-16 16:03 | disposition home or self-care (01) | DRG 310 ==
LOC: ED 17:09 → PCU 18:23
PROVIDERS: Admitting Provider Family Medicine; Emergency Provider Emergency Medicine; Family Provider Family Medicine; PCP Family Medicine; Referring Provider Family Medicine; Visit Provider Internal Medicine
DX: I48.0 Paroxysmal atrial fibrillation (principal); R03.0 Elevated blood-pressure reading, without diagnosis of hypertension; E66.9 Obesity, unspecified; Z87.891 Personal history of nicotine dependence; Z85.46 Personal history of malignant neoplasm of prostate; Z79.82 Long term (current) use of aspirin; E78.5 Hyperlipidemia, unspecified; Z68.38 Body mass index [BMI] 38.0-38.9, adult; Z79.899 Other long term (current) drug therapy
CPT/HCPCS: 36415; 71045; 80048; 80061; 83735; 84443; 84484; 85025; 93005; 93306; 96361; 96374; 96375; 99285; Q9957; A4216; C8929; J2405

== ENCOUNTER → 2020-12-08 17:54 | Outpatient (CLI) | payer MEDICARE, MEDICAID, SELFPAY ==
[2020-12-08 17:54] VITALS: BMI 38.9
== END ==
PROVIDERS: PCP Family Medicine; Referring Provider Family Medicine; Visit Provider Family Medicine
DX: J06.9 Acute upper respiratory infection, unspecified (principal)
CPT/HCPCS: 87635; U0005; U0003

== ENCOUNTER 2021-05-29 13:17 | Emergency (ER) | payer MEDICARE, MEDICAID, SELFPAY ==
[2020-12-08 17:54] VITALS: BMI 38.9
[2021-05-29 13:18] VITALS: BP 180/107; PULSE 59; RESP 14; TEMP 36.3; O2SAT 98; BMI 37.9
[2021-05-29 13:23] VITALS: BP 189/105; PULSE 108; RESP 13; O2SAT 98
--- NOTE | 2021-05-29 13:37 | EKG12_ITS ---
Test Reason : NUMBNESS Blood Pressure : / mmHG Vent. Rate : 074 BPM Atrial Rate : 077 BPM P-R Int : 000 ms QRS Dur : 084 ms QT Int : 354 ms P-R-T Axes : 000 -38 -02 degrees QTc Int : 392 ms Atrial fibrillation Left axis deviation Low voltage QRS Inferior infarct , age undetermined, cannot be excluded Abnormal ECG Confirmed by TRINO HAJI, PRANEETH ([id number]), editor & co founder LIZ RAMOS ([id number]) on 06/02/2021 1:28:02 PM Referred By: Praneeth Jameson Confirmed By:PRANEETH JAMESON MD
--- NOTE | 2021-05-29 13:37 | RAD_ITS ---
HISTORY: SOB. TECHNIQUE: XR Chest 1 View. # of images incl. paperwork: 2. COMPARISON: 06/14/2019. FINDINGS: CARDIOMEDIASTINAL STRUCTURES: Cardiac silhouette not enlarged. Mediastinal contour unremarkable. LUNGS: Radiographically clear. PLEURA: No pleural effusion or pneumothorax. OSSEOUS STRUCTURES: Degenerative change. RAD/Chest 1 View (Portable) IMPRESSION: No radiographic evidence of acute cardiopulmonary disease. at 1445 Reported and signed by: Maryam Reeves MD Electronically Signed: Maryam Reeves MD at 14:44 EDT Tel , Service support ,
[2021-05-29 14:32] LABS: Absolute Lymphocyte Count 1.25 X10^3/uL (0.83-4.51); Absolute Neutrophil Count 3.4 X10^3/uL (2.0-7.7); Basophil# 0.03 X10^3/uL; Basophil% 0.6 % (0-1); Eosinophil# 0.05 X10^3/uL; Hematocrit 44.7 % (40-54); Hemoglobin 15.5 g/dL (13.0-16.5); Lymphocyte # 1.25 X10^3/ul (0.83-4.51); Lymphocyte % 24.7 % (19-41); Mean Corp Hgb Conc 34.7 g/dL (32-36); Mean Corpuscular Volume 92.2 fL (80-94); Mean Platelet Vol. 9.4 fl (6.2-12.0); Monocyte# 0.35 X10^3/uL; Monocyte% 6.9 % (0-10); NRBC Flagged by Analyzer 0 % (0-5); Neutrophil # 3.36 X10^3/uL (2.7-7.7); Neutrophil % 66.4 % (47-70); Platelet Count 267 K/mm3 (150-450); RBC Distribution Width SD 40.8 fl (35.1-43.9); Red Blood Count 4.85 M/mm3 (4.6-6.2); White Blood Count 5.1 K/mm3 (4.4-11.0)
[2021-05-29 14:58] LABS: Anion Gap 6 (5-15); BUN 20 mg/dL (7-18); BUN/Creat Ratio 19.6 RATIO (10-20); Chloride 105 mmol/L (98-107); Creatinine, Serum 1.02 mg/dL (0.70-1.30); EST Glomerular Filtration Rate 78 mL/min (>60); Est Glom Filt Rate - Afr Amer 94 mL/min (>60); Estimated Creatinine Clearance 74.55 ml/min; Glucose 96 mg/dL (74-106); Potassium 3.8 mmol/L (3.5-5.1); Sodium Level 135 mmol/L (136-145); Troponin-I HS 7.3 pg/mL (3.0-78.5)
[2021-05-29] MEDS: 0.9% Normal Saline 1,000 ML 150 ML IV (15:11)
[2021-05-29 15:43] VITALS: BP 140/96; PULSE 79; RESP 15; O2SAT 95
--- NOTE | 2021-05-29 16:28 | EDS_ITS ---
HPI History of Present Illness Chief Complaint: Numb/Ting Informant: patient Onset/Context/Timing Onset: Today Current Severity: Mild Maximum Severity: Mild Narrative Narrative: Patient states that he feels numb and tingling sensation in the bilateral fingers. He also feels very anxious as if he might be having a panic attack. He states he has had some intermittent palpitations since . Has a history of A. fib but states he can normally tell when he is in A. fib. He does not feel that way currently. He does admit that he stopped taking his diltiazem quite some time ago. He is not on anticoagulants. He denies chest pain. No shortness of breath. [facility] Medical History Anxiety Atrial fibrillation Kidney stones Non-smoker Sleep apnea Home Medications aspirin 162 mg PO DAILY@0800 06/14/19 [History Last Taken 06/14/19 405 mg] apixaban [Eliquis] 5 mg PO BID #74 tab 05/29/21 [Rx Last Taken Unknown] metoprolol succinate [Toprol XL] 25 mg PO DAILY #30 tab 05/29/21 [Rx Last Taken Unknown] Allergy/AdvReac Type Severity Reaction Status Date / Time No Known Allergies Allergy Verified 05/29/21 13:20 Surgical History History of prostatectomy Social History Smoking Status: Never smoker ROS ROS ED Constitutional Constitutional ED: Denies chills or fever(s) Eyes Eyes: Denies change in vision ENT ENT ED: Denies sore throat Cardiovascular Cardiovascular: Reports palpitations; Denies chest pain Respiratory/Chest Respiratory/Chest: Denies cough or dyspnea Gastrointestinal Gastrointestinal: Denies abdominal pain, diarrhea, nausea or vomiting Genitourinary Genitourinary ED: Denies dysuria Musculoskeletal Musculoskeletal: Denies back pain Integumentary Denies rash Neurologic Neurologic: Denies headache(s) or weakness Psychiatric Psychiatric: Denies anxiety or depression Endocrine Endocrinology: Denies polydipsia or polyuria Allergic/Immunologic Allergic/Immunologic ED: Denies urticaria EXAM Physical Exam Const Vital Signs: 05/29/21 13:18 05/29/21 13:23 05/29/21 15:43 Temperature 97.4 F L Temperature Source Temporal Pulse Rate 59 L 108 H 79 Respiratory Rate 14 13 15 Blood Pressure 180/107 H 189/105 H 140/96 H Blood Pressure Mean 131 133 110 Pulse Ox 98 98 95 Oxygen Delivery Method Room Air Room Air Room Air 05/29/21 17:52 Temperature Temperature Source Pulse Rate 61 Respiratory Rate 16 Blood Pressure 146/99 H Blood Pressure Mean Pulse Ox 95 Oxygen Delivery Method Positive well nourished and well developed General Appearance ED: well developed HEENT Reports normocephalic and head/scalp atraumatic Eyes PERRL and EOMs intact bilaterally Neck supple Chest Wall inspection of chest normal and palpation of chest normal Resp normal respiratory effort and clear to auscultation bilaterally Cardio Rhythm: abnormal rhythm irregularly irregular GI normal to inspection, nondistended, normoactive bowel sounds Palpation: soft Extremity normal to inspection Neuro oriented x3 and no sensory deficits noted Sensorium / Orientation: alert Motor Exam: strength 5/5 throughout Psych mental status grossly normal Skin no rashes or lesions noted MDM MDM MDM Narrative Medical decision making narrative: EKG, labs, chest x-ray obtained. Lab Data Attestation: I reviewed the patient's lab results. Labs: Laboratory Results - last 24 hr 05/29/21 05/29/21 14:20 14:20 WBC 5.1 RBC 4.85 Hgb 15.5 Hct 44.7 MCV 92.2 MCH 32.0 MCHC 34.7 RDW Std Deviation 40.8 RDW Coeff of Augustin 12.0 Plt Count 267 MPV 9.4 Immature Gran % (Auto) 0.400 Neut % (Auto) 66.4 Lymph % (Auto) 24.7 [place] % (Auto) 6.9 Eos % (Auto) 1.0 Baso % (Auto) 0.6 Absolute Neuts (auto) 3.4 Absolute Lymphs (auto) 1.25 Nucleated RBC % 0 Sodium 135 L Potassium 3.8 Chloride 105 Carbon Dioxide 24.0 Anion Gap 6 BUN 20 H Creatinine 1.02 Estim Creat Clear Calc 74.55 Est GFR (MDRD) Af Amer 94 Est GFR (MDRD) Non-Af 78 BUN/Creatinine Ratio 19.6 Glucose 96 Calcium 9.0 Troponin I High Sens 7.3 Radiography Chest X-Ray - ED: 1 View, Read by ED Physician and Chronic Changes Diagnostic Testing: Radiology Impression Chest X-Ray 05/29/21 13:37 IMPRESSION: No radiographic evidence of acute cardiopulmonary disease. at 1445 Reported and signed by: Maryam Reeves MD Electronically Signed: Maryam Reeves MD at 14:44 EDT Tel , Service support , EKG Initial EKG: Attestation: I personally reviewed and interpreted this EKG as follows: Interpretation: Atrial Fibrillation (Atrial fibrillation at [address] change.) Treatment and Re-Evaluation Comments:: Patient's test results were reviewed with him. They are unremarkable. Patient remains in atrial fibrillation. Blood pressure is improved from arrival. Heart rate was initially 105 when I entered the room and this has improved into the 70s. Patient was discussed with Dr. Sims, on- call for cardiology. Patient be started on 25 mg of metoprolol XL and Eliquis. He is to follow-up in the office. Patient does express interest in receiving the [employer] Covid vaccine. Questions are reviewed with him. And this is provided prior to his discharge. Discharge Plan Triage Chief Complaint: Numb/Ting ED Provider: Yancy Titus Dx/Rx/DC Orders Clinical Impression: Atrial fibrillation Instructions: ED AFIB Prescriptions: New metoprolol succinate [Toprol XL] 25 mg tablet extended release 24 hr 25 mg PO DAILY Qty: 30 RF: 0 Eliquis 5 mg tablet 5 mg PO BID Qty: 74 RF: 0 No Action aspirin 81 MG tablet 162 mg PO DAILY@0800 RF: 0 Primary Care Provider: Antonio Reyes Referrals: Antonio Reyes MD [Primary Care Provider] - Praneeth Sims MD [STAFF PHYSICIAN] - 1-2 Weeks Disposition Disposition: Home, Self Care Discharge Date/Time: 05/29/21 17:53
[2021-05-29] MEDS: COVID-19 VAC,AD26(JANSSEN)/PF 0.5 ML SYRINGE IM (17:18)
[2021-05-29 17:52] VITALS: BP 146/99; PULSE 61; RESP 16; O2SAT 95
== END 2021-05-29 17:53 | disposition home or self-care (01) ==
PROVIDERS: Emergency Provider Emergency Medicine; PCP Family Medicine
DX: I48.91 Unspecified atrial fibrillation (principal); Z23 Encounter for immunization; Z79.02 Long term (current) use of antithrombotics/antiplatelets
CPT/HCPCS: 71045; 80048; 84484; 85025; 91303; 93005; 96360; 96361; 99284; J7030; A4216

== ENCOUNTER → 2021-06-06 09:25 | Outpatient (CLI) | payer MEDICARE, MEDICAID, SELFPAY ==
[2021-06-01 11:31] VITALS: BMI 37.8
== END ==
PROVIDERS: PCP Family Medicine; Referring Provider Internal Medicine Cardiovascular Disease; Visit Provider Internal Medicine Cardiovascular Disease
DX: I48.91 Unspecified atrial fibrillation (principal); E78.5 Hyperlipidemia, unspecified; I10 Essential (primary) hypertension
CPT/HCPCS: 93225; 93226

== ENCOUNTER → 2022-09-16 | Outpatient (CLI) | payer MEDICARE, MEDICAID, SELFPAY ==
[2022-09-16 11:22] LABS: AST(SGOT) 29 U/L (15-37); Alanine Aminotransfer ALT/SGPT 65 U/L (16-61); Albumin, Serum 3.7 g/dL (3.2-5.0); Alkaline Phosphatase 44 U/L (45-117); Anion Gap 5 (5-15); BUN 14 mg/dL (7-18); BUN/Creat Ratio 13.6 RATIO (10-20); Bilirubin, Direct 0.18 mg/dL (0.00-0.30); Calcium,Total 9.1 mg/dL (8.5-10.1); Chloride 109 mmol/L (98-107); Cholesterol 216 mg/dL (200); Creatinine, Serum 1.03 mg/dL (0.70-1.30); EST Glomerular Filtration Rate 77 mL/min (>60); Est Glom Filt Rate - Afr Amer 93 mL/min (>60); Glucose 98 mg/dL (74-106); High Density Lipoprotein 35 mg/dL; Magnesium 2.3 mg/dL (1.6-2.6); Potassium 4.3 mmol/L (3.5-5.1); Protein, Total 7.7 g/dL (6.4-8.2); Sodium Level 140 mmol/L (136-145); Thyroid Stim Hormone (TSH) 2.89 uIU/mL (0.358-3.74); Triglycerides 208 mg/dL; Very Low Density Lipoprotein 42 mg/dL (5-40)
== END | disposition home or self-care (01) ==
LOC: LAB 10:24
PROVIDERS: PCP Family Medicine; Referring Provider Nurse Practitioner Gerontology; Visit Provider Nurse Practitioner Gerontology
DX: I48.11 Longstanding persistent atrial fibrillation (principal); E78.5 Hyperlipidemia, unspecified
CPT/HCPCS: 36415; 80048; 80061; 80076; 83735; 84443

== ENCOUNTER → 2022-09-25 | Outpatient (CLI) | payer MEDICARE, MEDICAID, SELFPAY | END | disposition home or self-care (01) | LOC: SL 22:08 | PROVIDERS: PCP Family Medicine; Visit Provider Nurse Practitioner Gerontology | DX: G47.10 Hypersomnia, unspecified (principal) | CPT/HCPCS: 95810 ==

== ENCOUNTER → 2022-10-06 | Outpatient (CLI) | payer MEDICARE, MEDICAID, SELFPAY ==
--- NOTE | 2022-10-06 06:29 | ECHOD_ITS ---
Reason For Study: Afib, Aflutter Procedure This was a 2D Doppler, Color Flow transthoracic echocardiogram. The exam was of adequate technical quality. Exam performed in department. Left Ventricle Normal LV size. Left ventricular systolic function is normal. The estimated ejection fraction is 65 %. Unable to assess diastolic dysfunction. No regional wall motion abnormalities noted. Right Ventricle Normal RV size. Normal systolic function. Atria The left atrium is mildly enlarged. The right atrium is mildly enlarged. No doppler evidence for ASD. Mitral Valve There is no mitral annular calcification. Normal mitral valve. Moderate (2+) mitral valve insufficiency. Tricuspid Valve Normal tricuspid valve. Moderate (2+) tricuspid valve insufficiency. Right ventricular systolic pressure estimated to be 30 mmHg. Aortic Valve Trisinus/trileaflet aortic valve. Mild focal aortic valve calcification. Trivial aortic valve insufficiency. Pulmonic Valve The pulmonic valve is not well visualized. Trivial pulmonic valve insufficiency. Great Vessels Mildly dilated aortic root. Pericardium/Pleural No pericardial effusion. MMode/2D Measurements & Calculations LVIDd: 5.2 cm IVSd: 0.96 cm Ao root diam: 4.0 cm LVIDs: 2.8 cm LVPWd: 1.0 cm RVDd: 4.0 cm FS: 45.6 % LAV(MOD-bp): 70.3 ml LVAd ap4: 26.1 cm2 SV(MOD-sp4): 50.0 ml LAV(MOD-bp) Indexed: 29.7 ml/m2 LVLd ap4: 7.6 cm LAV(MOD-sp2): 80.1 ml EDV(MOD-sp4): 74.6 ml LAV(MOD-sp4): 62.0 ml EDV(sp4-el): 75.8 ml LVAs ap4: 13.3 cm2 LVLs ap4: 6.2 cm ESV(MOD-sp4): 24.6 ml ESV(sp4-el): 24.3 ml EF(MOD-sp4): 67.0 % EF(sp4-el): 68.0 % SV(sp4-el): 51.6 ml LA A4 area: 22.1 cm2 LA dimension(2D): 5.2 cm RA A4 area: 24.2 cm2 Doppler Measurements & Calculations MV E max domitila: 103.2 cm/sec Ao V2 max: 134.2 cm/sec AI max domitila: 412.5 cm/sec Ao max P.2 mmHg AI max P.1 mmHg Ao V2 mean: 89.2 cm/sec Ao mean P.5 mmHg AI dec slope: 139.9 cm/sec2 Ao V2 VTI: 25.0 cm AI P1/2t: 863.8 msec LV V1 max: 97.1 cm/sec PA V2 max: 109.5 cm/sec TR max domitila: 259.4 cm/sec LV V1 max P.8 mmHg TR max P.9 mmHg ECHO/Echo Complete Interpretation Summary Left ventricular systolic function is normal. The estimated ejection fraction is 65 %. The left atrium is mildly enlarged. The right atrium is mildly enlarged. Moderate (2+) mitral valve insufficiency. Moderate (2+) tricuspid valve insufficiency. Mild focal aortic valve calcification. Trivial aortic valve insufficiency. Trivial pulmonic valve insufficiency. Mildly dilated aortic root. Right ventricular systolic pressure estimated to be 30 mmHg. Unable to assess diastolic dysfunction. Ordering Physician: Shy Ross Referring Physician: Antonio Reyes Performed By: Sarah Bunch, DEION, RVT
--- NOTE | 2022-10-06 09:04 | STRESSREP ---
Stress Test Report Date: 10-06-2022 Procedure: Pharmacologic stress nuclear imaging study Indications: Atrial fibrillation Consent: Per the patient Procedure: The patient underwent pharmacologic (Regadenoson 0.4mg ) evaluation with a peak heart rate of 90 beats per minute (58%predicted maximal heart rate) and a resting blood pressure of 122/68 mmHg and a peak blood pressure of 126/74 mmHg. The baseline ECG demonstrated atrial fibrillation; low voltage QRS. The peak pharmacologic ECG demonstrated no obvious ECG changes. There were no cardiac dysrhythmias pretest, during pharmacologic infusion, or recovery. There was no complaint of chest discomfort during pharmacologic infusion or recovery. The examination was discontinued secondary to completion of protocol. Impression: 1. Pharmacologic (Regadenoson) evaluation 2. Peak pharmacologic ECG with no obvious ECG change. 3. Continued atrial fibrillation with low voltage QRS with no obvious ECG changes. 4. Nuclear images pending Myocardial perfusion imaging study: Technique: The patient was injected with 13.0 millicuries of technetium 99m Cardiolite and subsequently rest SPECT Cardiolite nuclear imaging was obtained in the horizontal long, vertical long, and short axis views. The patient underwent pharmacologic (Regadenoson) evaluation with a peak heart rate of 90 beats per minute (58% percent predicted maximal heart rate) and a resting blood pressure of 122/68 mmHg and a peak blood pressure of 126/74 mmHg. The patient was injected with 45.0 millicuries of technetium 99m Cardiolite and subsequently stress SPECT Cardiolite nuclear imaging was obtained in the horizontal long, vertical long, and short axis views. A gated Cardiolite study at peak stress was obtained. Interpretation: Rest and stress SPECT Cardiolite nuclear imaging status post realignment, normalization, and attenuation correction demonstrate insert normal. There is end systolic thickening and brightening. The gated Cardiolite study demonstrates myocardial thickening and inward wall motion. The reported LVEF is 63%. Impression: 1. Rest and stress SPECT Cardiolite nuclear imaging demonstrate relative uniform tracer uptake and myocardial perfusion appearing within normal limits. 2. The gated Cardiolite study reports an LVEF of 63%. This note was generated with [employer] software. It may contain incorrect words, spelling, and punctuation that were not noted in checking the note before signing.
== END | disposition home or self-care (01) ==
PROVIDERS: PCP Family Medicine; Referring Provider Nurse Practitioner Gerontology; Visit Provider Nurse Practitioner Gerontology
DX: I48.11 Longstanding persistent atrial fibrillation (principal); I48.92 Unspecified atrial flutter; I25.82 Chronic total occlusion of coronary artery
CPT/HCPCS: 78452; 93017; 93306; A9500; A4216; J2785

== ENCOUNTER → 2022-11-09 | Outpatient (CLI) | payer MEDICARE, MEDICAID, SELFPAY | END | disposition home or self-care (01) | PROVIDERS: PCP Family Medicine; Referring Provider Nurse Practitioner Acute Care; Visit Provider Nurse Practitioner Acute Care | DX: G47.31 Primary central sleep apnea (principal) | CPT/HCPCS: 95811 ==

== ENCOUNTER → 2022-12-15 | Outpatient (CLI) | payer MEDICARE, MEDICAID, SELFPAY ==
[2022-12-15 10:04] LABS: AST(SGOT) 38 U/L (15-37); Alanine Aminotransfer ALT/SGPT 53 U/L (16-61); Albumin, Serum 3.6 g/dL (3.2-5.0); Alkaline Phosphatase 46 U/L (45-117); Bilirubin, Direct 0.19 mg/dL (0.00-0.30); Cholesterol 151 mg/dL (200); Globulin 3.9 g/dL (2.2-4.2); High Density Lipoprotein 40 mg/dL; Protein, Total 7.5 g/dL (6.4-8.2); Triglycerides 133 mg/dL; Very Low Density Lipoprotein 27 mg/dL (5-40)
== END | disposition home or self-care (01) ==
PROVIDERS: PCP Family Medicine; Referring Provider Nurse Practitioner Gerontology; Visit Provider Nurse Practitioner Gerontology
DX: E78.5 Hyperlipidemia, unspecified (principal)
CPT/HCPCS: 36415; 80061; 80076

== ENCOUNTER 2023-04-06 12:40 | Outpatient (CLI) | payer MEDICARE, MEDICAID, SELFPAY ==
[2023-04-06 15:39] LABS: Absolute Lymphocyte Count 1.84 X10^3/uL (0.83-4.51); Absolute Neutrophil Count 3.4 X10^3/uL (2.0-7.7); Basophil# 0.02 X10^3/uL; Basophil% 0.4 % (0-1); Eosinophil# 0.09 X10^3/uL; Eosinophils% 1.6 % (0-5); Hematocrit 41.6 % (40-54); Hemoglobin 14.2 g/dL (13.0-16.5); Lymphocyte # 1.84 X10^3/ul (0.83-4.51); Lymphocyte % 32.7 % (19-41); Mean Corp Hgb Conc 34.1 g/dL (32-36); Mean Corpuscular Hgb 32.4 pg (27.0-32.0); Mean Platelet Vol. 10.3 fl (6.2-12.0); Monocyte# 0.31 X10^3/uL; Monocyte% 5.5 % (0-10); NRBC Flagged by Analyzer 0 % (0-5); Neutrophil # 3.35 X10^3/uL (2.7-7.7); Neutrophil % 59.6 % (47-70); Platelet Count 238 K/mm3 (150-450); RBC Distribution Width CV 12.3 % (11.6-14.6); RBC Distribution Width SD 42.7 fl (35.1-43.9); Red Blood Count 4.38 M/mm3 (4.6-6.2); White Blood Count 5.6 K/mm3 (4.4-11.0)
[2023-04-06 16:11] LABS: Hemoglobin A1c 5.9 % (3.8-5.6)
[2023-04-06 16:18] LABS: Microalbumin,Random Urine 8.4 mg/L (NO RANGE EST.); Microalbumin:Creatinine Ratio 4.8 mg/g CRE (<30 mg/g CRE); Syphilis Antibodies Non-reactive; Vitamin B12 379 pg/mL (211-911)
[2023-04-06 16:49] LABS: Ferritin 205 ng/mL (26-388); PSA,Total- Diagnostic < 0.01 ng/mL (0.0-4.0); Thyroid Stim Hormone (TSH) 2.64 uIU/mL (0.358-3.74)
== END 2023-04-06 23:59 | disposition home or self-care (01) ==
LOC: MTLAB 12:42
PROVIDERS: PCP Family Medicine; Referring Provider Family Medicine; Visit Provider Family Medicine
DX: E88.81 Metabolic syndrome and other insulin resistance (principal); I48.91 Unspecified atrial fibrillation; R20.2 Paresthesia of skin; Z85.46 Personal history of malignant neoplasm of prostate
CPT/HCPCS: 36415; 82043; 82570; 82607; 82728; 82746; 83036; 84153; 84443; 85025; 86780

== ENCOUNTER → 2023-05-14 | Outpatient (CLI) | payer MEDICARE, MEDICAID, SELFPAY ==
--- NOTE | 2023-05-14 16:47 | NEURO ---
NCS and/or EMG Patient Report Ordering Doctor: Antonio Reyes DATE OF SERVICE: 05/14/23 Findings: Nerve conduction studies were performed in the right and left upper extremities. The right median motor study recording the abductor pollicis brevis showed a reduced amplitude, prolonged distal latency and slowed conduction velocity. A conduction block was seen in the forearm segment. The right ulnar motor study recording the abductor digiti minimi showed a normal amplitude, normal distal latency and normal conduction velocity. No conduction block or focal slowing was present across the elbow. The right median sensory response recording digit two was absent. The right ulnar sensory response recording digit five showed a normal amplitude, latency and conduction velocity. The right radial sensory response recording over the extensor snuff box showed a normal amplitude, latency and conduction velocity. The left median motor study recording the abductor pollicis brevis showed a normal amplitude, prolonged distal latency and slowed conduction velocity. The left ulnar motor study recording the abductor digiti minimi showed a normal amplitude, normal distal latency and normal conduction velocity. No conduction block or focal slowing was present across the elbow. The left median sensory response recording digit two was absent. The left ulnar sensory response recording digit five showed a normal amplitude, normal latency and slowed conduction velocity. The left radial sensory response recording over the extensor snuff box showed a normal amplitude, latency and conduction velocity. Right median-ulnar lumbrical / interosseous motor latencies showed a prolonged median latency compared to the ulnar. Left median-ulnar lumbrical / interosseous motor latencies showed a prolonged median latency compared to the ulnar. Needle EMG upper extremities were omitted given the confirmatory nature of the nerve conduction studies and absence of radicular symptomatology. Impression: This is an abnormal study. 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 The pathophysiology is demyelination with significant secondary sensorimotor axon loss. These findings are compatible with severe bilateral carpal tunnel syndrome. The right median nerve conduction block seen in the forearm is of unclear significance. This result may be technical as it is incongruent with the clinical strength exhibited by the abductor pollicis brevis. Further evaluation and characterization of this lesion may be pursued with neuromuscular ultrasound. Jesse Payne D.O. Multi Select Codes Neurology Neurology Interp Codes: 77056-07 [facility] test 13/> studies (interp)
== END | disposition home or self-care (01) ==
LOC: PSN 14:27
PROVIDERS: PCP Family Medicine; Referring Provider Family Medicine; Visit Provider Family Medicine
DX: R20.2 Paresthesia of skin (principal)
CPT/HCPCS: 95913

== ENCOUNTER → 2023-11-23 | Outpatient (CLI) | payer MEDICARE, MEDICAID, SELFPAY ==
--- NOTE | 2023-11-23 12:52 | CT_ITS ---
STUDY: CTA CHEST REASON FOR EXAM: Male, 68 years old. Mildly dilated Aortic Root. History of prostate cancer. RADIATION DOSAGE (If Supplied By Facility): CTDIvol = ( 19.76 ) mGy, DLP = ( 792.05 ) mGycm TECHNIQUE: The examination was performed with the intravenous administration of IV 100mL Isovue-370. Post-processing of the angiographic images was performed, with multiplanar reformation and 3D reconstruction. Individualized dose optimization techniques were used for this CT. COMPARISON: None. FINDINGS: Normal enhancement of the main pulmonary artery and right and left pulmonary arteries. Normal enhancement of the bilateral peripheral pulmonary arteries. There is no demonstrated pulmonary embolism. Normal thoracic aorta and visualized great vessels. The Ascending thoracic aorta measures 38.7 mm. This measures upper limits of normal. There is no demonstrated aortic dissection. Normal heart and pericardium. There are small visualized mediastinal lymph nodes, which are within normal size limits, and with normal morphology. Normal hilar regions. Normal visualized trachea and bronchi. The lungs are well expanded. Normal pulmonary parenchyma. Normal pleura. Normal chest wall structures. There are degenerative changes of thoracic spine. Diffuse fatty infiltration of the liver. Multiple gallstones. There is a 2.9 cm x 1.8 cm lipoma in the right lateral chest wall muscle. CT/CTA Chest W/WO Contrast IMPRESSION: No evidence of Ascending thoracic aortic aneurysm. Multiple gallstones. Diffuse fatty infiltration of the liver. Electronically Signed: Jimbo Mcgrath MD at 14:33 EST ,
--- OUTSIDE RECORDS SUMMARY | 2023-11-23 13:03 | XMS RPT_ITS | CCD ---
Author Name Unknown Address [address] [place] [address] Organization [facility] Care Team Providers Care General Ii Farmworker Name Role Phone TRACY LECHUGA Admitting Unavailable TRACY LECHUGA Attending Unavailable TRACY LECHUGA Primary Care Unavailable MIKE DUNN Consulting Unavailable PROVIDER, UNKNOWN Consulting Unavailable PROVIDER, UNKNOWN Consulting Unavailable PROVIDER, UNKNOWN Consulting Unavailable TRACY LECHUGA Admitting Unavailable TRACY LEHCUGA Attending Unavailable TRACY LECHUGA Primary Care Unavailable SOLEDAD TAYLOR Consulting Unavailable SOLEDAD TAYLOR Referring Unavailable PROVIDER, UNKNOWN Consulting Unavailable TRACY LECHUGA Admitting Unavailable TRACY LECHUGA Attending Unavailable TRACY LECHUGA Primary Care Unavailable CLAUDIA SOLEDAD A Consulting Unavailable PROVIDER, UNKNOWN Consulting Unavailable Problems Problem Classification Problem Date Documented Da te Episodic/Chronic Administrative/social admission (3 sources) Encounter for pre-employment examination; Translations: [Encounter for pre-employment examination] Onset: 06-18-2019 Episodic Results Test Name Value Interpretation Reference Range Facil ity Encounters Encounter Date Encounter Type Care Provider Facility Start: 03-25-2020 End: 03-25-2020 Patient encounter procedure TRACY JOE [facility] Start: 03-09-2020 End: 03-09-2020 Patient encounter procedure TRACY DIAZ [facility] Start: 06-18-2019 End: 06-18-2019 Patient encounter procedure TRACY DIAZ [facility] Summary Purpose Family History No Family History Records FoundNo Family History Records Found Advance Directives No Advanced Directives Records FoundNo Advanced Directives Records Found Additional Source Comments (unrecognized sect ion and content) No Status Records FoundNo Status Records Found INFORMATION SOURCE (unrecogn ized section and content) DATE CREATED AUTHOR AUTHOR'S ORGANIZ ATION 06/03/2020 [facility] FOR RECORDS PERTAINING TO PATIENTS WHO ARE OR HAVE BEEN ENROLLED IN A CHEMICAL DEPENDENCY/SUBSTANCEABUSE PROGRAM, SOME INFORMATION MAY BE OMITTED. This clinical summary was aggregated from multiple sources. Caution should be exercised in using it in the provision of clinical care. This summary normalizes information from multiple sources, and as a consequence, information in this document may materially change the coding, format and clinical context of patient data. In addition, data may be omitted in some cases. CLINICAL DECISIONS SHOULD BE BASED ON THE PRIMARY CLINICAL RECORDS. [facility] [email or web address] [facility]. provides no warranty or guarantee of the accuracy or completeness of information in this document.
[2023-11-23 13:29] LABS: CREATININE FINGERSTICK < 1.0 mg/dL (0.70-1.30); EGFR FINGERSTICK > 60.0000 mL/min (>60)
== END | disposition home or self-care (01) ==
LOC: CT 12:51
PROVIDERS: PCP Family Medicine; Referring Provider Nurse Practitioner Gerontology; Visit Provider Nurse Practitioner Gerontology
DX: I77.810 Thoracic aortic ectasia (principal)
CPT/HCPCS: 71275; Q9967

== ENCOUNTER → 2024-01-12 | Outpatient (CLI) | payer MEDICARE, MEDICAID, SELFPAY ==
--- OUTSIDE RECORDS SUMMARY | 2024-01-12 11:00 | XMS RPT_ITS | CCD ---
Author Name Unknown Address [address] [place] [address] Organization [facility] Care Team Providers Care Customer Marketing Manager Name Role Phone TRACY LECHUGA Admitting Unavailable [...] TRACY LECHUGA Primary Care Unavailable SOLEDAD TAYLOR A Consulting Unavailable PROVIDER, UNKNOWN Consulting Unavailable Problems Problem Classification Problem Date Documented Da te Episodic/Chronic Administrative/social admission (3 sources) Encounter for pre-employment examination; Translations: [Encounter for pre-employment examination] Onset: 06-18-2019 Episodic Results Test Name Value Interpretation Reference Range Facil ity Encounters Encounter Date Encounter Type Care Provider Facility Start: 03-25-2020 End: 03-25-2020 Patient encounter procedure TRACY JOE [facility] Start: 03-09-2020 End: 03-09-2020 Patient encounter procedure TRACY JOE [facility] Start: 06-18-2019 End: 06-18-2019 Patient encounter procedure TRACY JOE [facility] Summary Purpose Family History No Family History Records FoundNo Family History Records Found Advance Directives No Advanced Directives Records FoundNo Advanced Directives Records Found Additional Source Comments (unrecognized sect ion and content) No Status Records FoundNo Status Records Found INFORMATION SOURCE (unrecogn ized section and content) DATE CREATED AUTHOR AUTHOR'S ORGANIZ ATION 06/03/2020 [facility] FOR RECORDS PERTAINING TO PATIENTS WHO ARE [...] BE BASED ON THE PRIMARY CLINICAL RECORDS. [facility] [employer] [facility]. provides no warranty or guarantee of the accuracy or completeness of information in this document.
[2024-01-12 11:43] LABS: Absolute Lymphocyte Count 2.17 X10^3/uL (0.83-4.51); Absolute Neutrophil Count 2.9 X10^3/uL (2.0-7.7); Basophil# 0.03 X10^3/uL; Basophil% 0.5 % (0-1); Eosinophil# 0.11 X10^3/uL; Hematocrit 41.4 % (40-54); Hemoglobin 14.1 g/dL (13.0-16.5); Lymphocyte # 2.17 X10^3/ul (0.83-4.51); Lymphocyte % 38.8 % (19-41); Mean Corp Hgb Conc 34.1 g/dL (32-36); Mean Corpuscular Hgb 32.1 pg (27.0-32.0); Mean Corpuscular Volume 94.3 fL (80-94); Monocyte% 7.2 % (0-10); NRBC Flagged by Analyzer 0 % (0-5); Neutrophil # 2.87 X10^3/uL (2.7-7.7); Neutrophil % 51.3 % (47-70); Platelet Count 230 K/mm3 (150-450); RBC Distribution Width CV 12.3 % (11.6-14.6); Red Blood Count 4.39 M/mm3 (4.6-6.2); White Blood Count 5.6 K/mm3 (4.4-11.0)
[2024-01-12 12:03] LABS: Hemoglobin A1c 5.8 % (3.8-5.6)
[2024-01-12 12:06] LABS: AST(SGOT) 25 U/L (15-37); Alanine Aminotransfer ALT/SGPT 36 U/L (16-61); Albumin, Serum 3.7 g/dL (3.2-5.0); Alkaline Phosphatase 42 U/L (45-117); Anion Gap 4 (5-15); BUN 13 mg/dL (7-18); BUN/Creat Ratio 13.2 RATIO (10-20); Bilirubin, Direct 0.24 mg/dL (0.00-0.30); Chloride 109 mmol/L (98-107); Cholesterol 139 mg/dL (200); Creatinine, Serum 0.98 mg/dL (0.70-1.30); EST Glomerular Filtration Rate 81 mL/min (>60); Est Glom Filt Rate - Afr Amer 97 mL/min (>60); Globulin 3.7 g/dL (2.2-4.2); Glucose 92 mg/dL (74-106); High Density Lipoprotein 34 mg/dL; Potassium 4.1 mmol/L (3.5-5.1); Protein, Total 7.4 g/dL (6.4-8.2); Sodium Level 139 mmol/L (136-145); Triglycerides 226 mg/dL; Very Low Density Lipoprotein 45 mg/dL (5-40)
[2024-01-18 09:09] LABS: Testosterone, % Free 3.67 % (1.50-4.20); Testosterone, Free 7.01 ng/dL (5.00-21.00); Testosterone, Total 191 ng/dL (264-916)
== END | disposition home or self-care (01) ==
PROVIDERS: PCP Family Medicine; Referring Provider Nurse Practitioner Gerontology; Visit Provider Nurse Practitioner Gerontology
DX: I48.91 Unspecified atrial fibrillation (principal); N52.9 Male erectile dysfunction, unspecified; E78.00 Pure hypercholesterolemia, unspecified
CPT/HCPCS: 36415; 80053; 80061; 82248; 83036; 84402; 84403; 85025

== ENCOUNTER → 2024-07-18 | Outpatient (CLI) | payer MEDICARE, MEDICAID, SELFPAY | END | disposition home or self-care (01) | LOC: MFPLAB 16:28 | PROVIDERS: PCP Family Medicine; Visit Provider Family Medicine | DX: Z00.00 Encounter for general adult medical examination without abnormal findings (principal) ==

== ENCOUNTER → 2024-07-25 | Outpatient (CLI) | payer MEDICARE, MEDICAID, SELFPAY ==
[2024-07-25 12:43] LABS: Absolute Lymphocyte Count 2.22 X10^3/uL (0.83-4.51); Absolute Neutrophil Count 2.8 X10^3/uL (2.0-7.7); Basophil# 0.03 X10^3/uL; Basophil% 0.5 % (0-1); Eosinophil# 0.09 X10^3/uL; Eosinophils% 1.6 % (0-5); Hematocrit 42.9 % (40-54); Hemoglobin 14.6 g/dL (13.0-16.5); Lymphocyte # 2.22 X10^3/ul (0.83-4.51); Lymphocyte % 40.1 % (19-41); Mean Corpuscular Volume 94.1 fL (80-94); Mean Platelet Vol. 10.6 fl (6.2-12.0); Monocyte% 7.2 % (0-10); NRBC Flagged by Analyzer 0 % (0-5); Neutrophil # 2.79 X10^3/uL (2.7-7.7); Neutrophil % 50.4 % (47-70); Platelet Count 231 K/mm3 (150-450); RBC Distribution Width CV 12.4 % (11.6-14.6); RBC Distribution Width SD 42.8 fl (35.1-43.9); Red Blood Count 4.56 M/mm3 (4.6-6.2); White Blood Count 5.5 K/mm3 (4.4-11.0)
[2024-07-25 13:56] LABS: ALB/GLOB Ratio 0.9 RATIO (0.9-2.4); AST(SGOT) 28 U/L (15-37); Alanine Aminotransfer ALT/SGPT 48 U/L (16-61); Albumin, Serum 3.7 g/dL (3.2-5.0); Alkaline Phosphatase 44 U/L (45-117); Anion Gap 6 (5-15); BUN 13 mg/dL (7-18); BUN/Creat Ratio 12.9 RATIO (10-20); Calcium,Total 9.2 mg/dL (8.5-10.1); Chloride 107 mmol/L (98-107); Cholesterol 159 mg/dL (200); Creatinine, Serum 1.01 mg/dL (0.70-1.30); EST Glomerular Filtration Rate 78 mL/min (>60); Est Glom Filt Rate - Afr Amer 94 mL/min (>60); Globulin 3.9 g/dL (2.2-4.2); Glucose 104 mg/dL (74-106); High Density Lipoprotein 39 mg/dL; PSA,Total- Diagnostic < 0.01 ng/mL (0.0-4.0); Potassium 4.2 mmol/L (3.5-5.1); Protein, Total 7.6 g/dL (6.4-8.2); Sodium Level 136 mmol/L (136-145); Triglycerides 170 mg/dL; Very Low Density Lipoprotein 34 mg/dL (5-40)
[2024-07-25 15:13] LABS: Hemoglobin A1c 5.8 % (3.8-5.6)
== END | disposition home or self-care (01) ==
PROVIDERS: PCP Family Medicine; Visit Provider Family Medicine
DX: E88.810 Metabolic syndrome (principal); I48.91 Unspecified atrial fibrillation; G47.31 Primary central sleep apnea; Z85.46 Personal history of malignant neoplasm of prostate
CPT/HCPCS: 36415; 80053; 80061; 83036; 84153; 84443; 85025

== ENCOUNTER → 2024-11-14 | Outpatient (CLI) | payer MEDICARE, SELFPAY ==
--- NOTE | 2024-11-14 13:23 | CT_ITS ---
STUDY: CT CHEST WITH CONTRAST REASON FOR EXAM: Male, 69 years old. TAA RADIATION DOSAGE (If Supplied By Facility): CTDIvol = ( 19.91 ) mGy, DLP = ( 829.63 ) mGycm TECHNIQUE: Transaxial imaging was performed following intravenous administration of IV 100mL Isovue-370. Multiplanar coronal and sagittal images were reformatted. Individualized dose optimization techniques were used for this CT. COMPARISON: No relevant priors. FINDINGS: CHEST The lungs are normal. There is no demonstrated pleural abnormality. Normal heart and pericardium. No significant coronary artery calcification is seen. Normal mediastinum. Normal hilar regions. Normal unenhanced pulmonary arteries. The origin of the ascending thoracic aorta measures 39.3 mm. This measures upper limits of normal. There are multi-level degenerative changes of the thoracic spine. Stable 2.9 cm x 1.8 cm lipoma in the right lateral chest wall musculature. Fatty infiltration of the liver. CT/Chest WITH Contrast IMPRESSION: Normal enhanced CT chest T abdomen examination. Electronically Signed: Jimbo Mgcrath MD at 15:41 EST ,
== END | disposition home or self-care (01) ==
LOC: CT 13:22
PROVIDERS: PCP Family Medicine; Referring Provider Physician Assistant Medical; Visit Provider Physician Assistant Medical
DX: I77.810 Thoracic aortic ectasia (principal)
CPT/HCPCS: 71260; Q9967; A4216